=== PATIENT | female | born 1955 | race Caucasian/White ===

== ENCOUNTER → 2020-05-18 | Outpatient (CLI) | payer MEDICARE | END | disposition home or self-care (01) | LOC: RAD 10:19 | PROVIDERS: ATTEND Nurse Practitioner | DX: G25.0 Essential tremor (principal); Q89.9 Congenital malformation, unspecified | CPT/HCPCS: 70450 ==

== ENCOUNTER 2020-06-01 12:42 | Outpatient (CLI) | payer MEDICARE | END 2020-06-01 23:59 | disposition home or self-care (01) | LOC: RAD 12:42 | PROVIDERS: ATTEND Nurse Practitioner | DX: Z02.9 Encounter for administrative examinations, unspecified (principal) | CPT/HCPCS: 70450 ==